=== PATIENT | female | born 1935 | race Hispanic/Latino ===

== ENCOUNTER 2017-11-23 10:51 | Emergency (ER) | payer MEDICARE, OTHER ==
[~2017-11-23] VITALS: Ht 157.5 cm; Wt 81.6 kg
[~2017-11-23 10:51] MED LIST: LEVAQUIN500 MG PO; ULTRAM 50MG50 MG PO
[2017-11-23] MEDS ORDERED: TETRACAINE HCL 0.5% OPTH SOLN 4 ML BTL OP ONE (11:45)
[2017-11-23 11:47] LABS: BASOPHILS # (AUTO) 0.1 (0.0-0.1); BASOPHILS % 0.6 % (0.0-1.0); EOSINOPHILS # (AUTO) 0.2 (0.0-0.4); EOSINOPHILS % 2.7 % (0.0-6.0); HEMATOCRIT 41.5 % (34.2-44.1); HEMOGLOBIN 13.7 g/dL (12.0-16.0); LYMPHOCYTES # (AUTO) 2.2 (1.0-3.2); LYMPHOCYTES % 27.2 % (18.0-39.1); MEAN CORPUSCULAR HEMOGLOBIN 27.6 pg (28-32); MEAN CORPUSCULAR VOLUME 83.5 fL (81-99); MONOCYTES # (AUTO) 0.4 (0.2-0.8); MONOCYTES % 4.9 % (4.4-11.3); NEUTROPHILS # (AUTO) 5.3 (2.1-6.9); NEUTROPHILS % 64.2 % (38.7-80.0); PLATELET COUNT 141 x10e3/uL (140-360); RED BLOOD COUNT 4.97 x10e6/uL (3.6-5.1); RED CELL DISTRIBUTION WIDTH 13.2 % (11.7-14.4)
--- NOTE | 2017-11-23 11:50 | Diagnostic Imaging Report ---
EXAMINATION: CHEST SINGLE (PORTABLE) INDICATION: \S\cough \[id number] \S\[id number] COMPARISON: None FINDINGS: AP view TUBES and LINES: None. LUNGS: Lungs are well inflated. Lungs are clear. There is no evidence of pneumonia or pulmonary edema. PLEURA: No pleural effusion or pneumothorax. HEART AND MEDIASTINUM: The cardiomediastinal silhouette is unremarkable. BONES AND SOFT TISSUES: No acute osseous or soft tissue findings. UPPER ABDOMEN: No free air under the diaphragm. IMPRESSION: No evidence of consolidative pneumonia. Signed by: DR. Morgan Esparza MD on 11/23/2017 11:46 AM
[2017-11-23 12:14] LABS: ALANINE AMINOTRANSFERASE 32 IU/L (0-55); ALBUMIN 3.8 g/dL (3.5-5.0); ALBUMIN/GLOBULIN RATIO 1.1 (0.8-2.0); ALKALINE PHOSPHATASE 86 IU/L (40-150); ANION GAP 15.6 mmol/L (8-16); BLOOD UREA NITROGEN 14 mg/dL (7-26); BUN/CREATININE RATIO 19 (6-25); CALCIUM 8.8 mg/dL (8.4-10.2); CARBON DIOXIDE 23 mmol/L (22-29); CHLORIDE 104 mmol/L (98-107); CREATININE, SERUM 0.73 mg/dL (0.57-1.11); EST GLOMERULAR FILTRATION RATE > 60 ML/MIN (60-); GLUCOSE 196 mg/dL (74-118); POTASSIUM 4.6 mmol/L (3.5-5.1); SODIUM 138 mmol/L (136-145)
--- NOTE | 2017-11-23 12:20 | Diagnostic Imaging Report ---
History:Headache, left eye pain Comparison studies:None Technique: Axial images were obtained from the skull base to the vertex. Coronal and sagittal images reconstructed from the axial data. Intravenous contrast: None Findings: Scalp/skull: No abnormalities. Extra-axial spaces: No masses. No fluid collections. Brain sulci: Mildly prominent. Ventricles: Mild compensatory dilatation. No hydrocephalus. Parenchyma: Scattered small hypodensities in the supratentorial white matter are small vessel ischemic changes. No masses, hemorrhage, acute or chronic cortical vascular insults. Sellar/suprasellar region: No abnormalities. Craniocervical junction: Patent foramen magnum. No Chiari one malformation. Incidental findings: Atherosclerotic calcifications in the carotid siphons . Impression: No acute abnormalities. Chronic findings: 1. Mild generalized volume loss. 2. Mild supratentorial white matter small vessel ischemic changes. Signed by: DR Efren Blanco M.D. on 11/23/2017 12:16 PM
[2017-11-23] MEDS ORDERED: KETOROLAC TROMETHAMINE 30 MG/ML VIAL IV STA (13:03)
[2017-11-23 14:13] VITALS: BP 173/84
== END 2017-11-23 14:25 | disposition home or self-care (01) ==
LOC: ER 10:51
DX: H10.232 Serous conjunctivitis, except viral, left eye (principal); J00 Acute nasopharyngitis [common cold]; E11.9 Type 2 diabetes mellitus without complications; I10 Essential (primary) hypertension; E78.5 Hyperlipidemia, unspecified
CPT/HCPCS: 36415; 70450; 71045; 80053; 85025; 87400; 99284; J1885

== ENCOUNTER 2019-04-07 13:43 | Emergency (ER) | payer MEDICARE, OTHER ==
[~2019-04-07] VITALS: Ht 157.5 cm; Wt 81.6 kg
--- OUTSIDE RECORDS SUMMARY | 2019-04-07 13:45 | XMS REPORT ---
[facility] Address Unknown Phone Unavailable Care Team Providers Care Trekking Guide Name Role Phone Rigo CASAS Unavailable Unavailable Problems This patient has no known problems. Allergies, Adverse Reactions, Alerts This patient has no known allergies or adverse reactions. Medications This patient has no known medications. Results Test Description Test Time Test Comments Text Results Atomic Results Result Comments CT BRAIN WO [place] [address] Patient Name: KHADAR BURDICK MR #: [id number] : 1935 Age/Sex: 82/F Req #: [id number] Adm Physician: Ordered by: BRIDGET CASAS MD Report #: [id number] Location: ER Room/Bed: Procedure: [id number] CT/CT BRAIN WO Exam Date: 11/23/17 Exam Time: 1219 REPORT STATUS: Signed History:Headache, left eye pain Comparison studies:None Technique: Axial images were obtained from the skull base to the vertex. Coronal and sagittal images reconstructed from the axial data. Intravenous contrast: None Findings: Scalp/skull: No abnormalities. Extra-axial spaces: No masses. No fluid collections. Brain sulci: Mildly prominent. Ventricles: Mild compensatory dilatation. No hydrocephalus. Parenchyma: Scattered small hypodensities in the supratentorial white matter are small vessel ischemic changes. No masses, hemorrhage, acute or chronic cortical vascular insults. Sellar/suprasellar region: No abnormalities. Craniocervical junction: Patent foramen magnum. No Chiari one malformation. Incidental findings: Atherosclerotic calcifications in the carotid siphons . Impression: No acute abnormalities. Chronic findings: 1. Mild generalized volume loss. 2. Mild supratentorial white matter small vessel ischemic changes. Signed by: DR Efren Blanco M.D. on 11/23/2017 12:16 PM Dictated By: EFREN DURAND MD [id number] Transcribed By: FLORENTINO on 11/23/17 1216 COPY TO: BRIDGET CASAS MD CHEST SINGLE (PORTABLE) [place] [address] Patient Name: KHADAR BURDICK MR #: [id number] : 1935 Age/Sex: 82/F Req #: [id number] Adm Physician: Ordered by: BRIDGET CASAS MD Report #: [id number] Location: ER Room/Bed: Procedure: [id number] DX/CHEST SINGLE (PORTABLE) Exam Date: 11/23/17 Exam Time: 1135 REPORT STATUS: Signed EXAMINATION: CHEST SINGLE (PORTABLE) INDICATION: COMPARISON: None FINDINGS: AP view TUBES and LINES: None. LUNGS: Lungs are well inflated. Lungs are clear. There is no evidence of pneumonia or pulmonary edema. PLEURA: No pleural effusion or pneumothorax. HEART AND MEDIASTINUM: The cardiomediastinal silhouette is unremarkable. BONES AND SOFT TISSUES: No acute osseous or soft tissue findings. UPPER ABDOMEN: No free air under the diaphragm. IMPRESSION: No evidence of consolidative pneumonia. Signed by: DR. Morgan Calloway MD on 11/23/2017 11:46 AM Dictated By: MORGAN CALLOWAY MD [id number] Transcribed By: FLORENTINO on 11/23/17 1146 COPY TO: BRIDGET CASAS MD
--- NOTE | 2019-04-07 16:22 | NUR ---
DR. MUSTAFA EVALUATING PATIENT IN TRIAGE PATIENT BP 238/99. PATIENT DID NOT TAKE HER BP MEDS BECAUSE SHE WAS COMING TO THE DOCTOR. EDUCATED HER TO ALWAYS TAKE HER SCHEDULED MEDS UNLESS THE DOCTOR SAYS OTHERWISE. PATIENT VERBALIZED UNDERSTANDING
[2019-04-07] MEDS: NIFEDIPINE 10 MG CAP PO NR (16:30)
[2019-04-07] MEDS ORDERED: LIDOCAINE HCL 1% 2 ML AMP ONE (16:32)
[2019-04-07] MEDS ORDERED: CEFTRIAXONE SOD 1 GM VIAL ONE (16:32)
[2019-04-07] MEDS: LIDOCAINE HCL 1% LOCAL INJ 20 ML VIAL INJ NR (16:39)
[2019-04-07] MEDS: CEFTRIAXONE SOD 1 GM VIAL IM NR (16:39)
[2019-04-07 16:56] LABS: BILIRUBIN,URINE NEGATIVE (NEGATIVE); CLARITY,URINE SL CLOUDY (CLEAR); COLOR,URINE YELLOW (YELLOW); KETONES,URINE NEGATIVE (NEGATIVE); LEUKOCYTE ESTERASE ,URINE SMALL (NEGATIVE); NITRITE,URINE POSITIVE (NEGATIVE); PROTEIN,URINE DIPSTICK NEGATIVE (NEGATIVE); URINE UROBILINOGEN 0.2 mg/dL (0.2 - 1)
[2019-04-07 17:09] LABS: BACTERIA,URINE MANY /HPF
--- NOTE | 2019-04-07 17:26 | NUR ---
PATIENT BROUGHT BACK TO TRIAGE TO EVALUATE BP AFTER GIVING PROCARDIA
--- NOTE | 2019-04-07 18:30 | NUR ---
PATIENT CALLED BACK TO TRIAGE FOR DISCHARGE. DR. MUSTAFA SPEAKING WITH PATIENT REGARDING FOLLOW UP CARE
== END 2019-04-07 18:40 | disposition home or self-care (01) ==
LOC: ER 13:43
DX: R10.30 Lower abdominal pain, unspecified (principal); R30.0 Dysuria; N30.91 Cystitis, unspecified with hematuria; E11.9 Type 2 diabetes mellitus without complications; E78.5 Hyperlipidemia, unspecified
CPT/HCPCS: 81001; 87086; 87186; 99283; J0696; J2001

== ENCOUNTER → 2022-06-14 | Day surgery (SDC) | payer OTHER ==
[2022-06-12 09:51] LABS: BASOPHILS % 0.4 % (0.0-1.0); EOSINOPHILS # (AUTO) 0.2 (0.0-0.4); EOSINOPHILS % 2.1 % (0.0-6.0); HEMOGLOBIN 12.9 g/dL (12.0-16.0); LYMPHOCYTES # (AUTO) 2.6 (1.0-3.2); LYMPHOCYTES % 28.6 % (18.0-39.1); MEAN CORPUSCULAR HEMOGLOBIN 28.8 pg (28-32); MEAN CORPUSCULAR HGB CONC 32.3 g/dL (31-35); MEAN CORPUSCULAR VOLUME 89.3 fL (81-99); MONOCYTES # (AUTO) 0.5 (0.2-0.8); MONOCYTES % 5.4 % (4.4-11.3); NEUTROPHILS # (AUTO) 5.7 (2.1-6.9); NEUTROPHILS % 63.2 % (38.7-80.0); PLATELET COUNT 146 x10e3/uL (140-360); RED BLOOD COUNT 4.48 x10e6/uL (3.6-5.1); RED CELL DISTRIBUTION WIDTH 13.2 % (11.7-14.4)
[~2022-06-14] MED LIST changes: +AREDS PO; +CRESTOR10 MG PO; +LIDOCAINE HCL 2% LOCAL INJ 5 ML SDV VIAL INJ ONE; +METFORMIN HCL500 MG PO; +PROPOFOL IV EMULSION 10 MG/ML 20 ML VIAL ONE; +SYSTANE 0.3-0.1 EACH OP; +TRAZODONE HCL50 MG PO; +ZESTRIL10 MG PO
[2022-06-14 10:30] VITALS: BP 159/82
== END | disposition home or self-care (01) ==
LOC: OR 06:57
PROVIDERS: ATTEND Internal Medicine Gastroenterology
DX: R19.5 Other fecal abnormalities (principal); D12.3 Benign neoplasm of transverse colon; K57.30 Diverticulosis of large intestine without perforation or abscess without bleeding; K64.8 Other hemorrhoids; Z71.3 Dietary counseling and surveillance; E11.9 Type 2 diabetes mellitus without complications; I10 Essential (primary) hypertension; E78.5 Hyperlipidemia, unspecified; E66.9 Obesity, unspecified; R53.1 Weakness; F32.A Depression, unspecified; Z88.0 Allergy status to penicillin; Z01.810 Encounter for preprocedural cardiovascular examination; Z01.812 Encounter for preprocedural laboratory examination; Z79.84 Long term (current) use of oral hypoglycemic drugs; Z79.899 Other long term (current) drug therapy; Z68.31 Body mass index [BMI] 31.0-31.9, adult
CPT/HCPCS: 36415; 45378; 82948; 85025; 88305; 93005; J2001

== ENCOUNTER 2024-10-10 17:26 | Emergency (ER) | payer MEDICARE, OTHER ==
[~2024-10-10] VITALS: Ht 157.5 cm; Wt 81.6 kg
[~2024-10-10 17:26] MED LIST changes: -LIDOCAINE HCL 2% LOCAL INJ 5 ML SDV VIAL INJ ONE; -PROPOFOL IV EMULSION 10 MG/ML 20 ML VIAL ONE
[2024-10-10 18:18] LABS: BASOPHILS % 0.5 % (0.0-1.0); EOSINOPHILS # (AUTO) 0.2 (0.0-0.4); EOSINOPHILS % 2.1 % (0.0-6.0); HEMATOCRIT 41.9 % (34.2-44.1); HEMOGLOBIN 12.9 g/dL (12.0-16.0); LYMPHOCYTES % 24.8 % (18.0-39.1); MEAN CORPUSCULAR HEMOGLOBIN 29.1 pg (28-32); MEAN CORPUSCULAR HGB CONC 30.8 g/dL (31-35); MEAN CORPUSCULAR VOLUME 94.4 fL (81-99); MONOCYTES # (AUTO) 0.6 (0.2-0.8); MONOCYTES % 6.9 % (4.4-11.3); NEUTROPHILS # (AUTO) 5.2 (2.1-6.9); NEUTROPHILS % 65.4 % (38.7-80.0); PLATELET COUNT 124 x10e3/uL (140-360); RED BLOOD COUNT 4.44 x10e6/uL (3.6-5.1); RED CELL DISTRIBUTION WIDTH 13.7 % (11.7-14.4)
[2024-10-10 18:26] LABS: CLARITY,URINE CLEAR (CLEAR); COLOR,URINE YELLOW (YELLOW); PH,URINE 7 (5 - 7)
[2024-10-10 18:27] LABS: BILIRUBIN,URINE NEGATIVE (NEGATIVE); GLUCOSE, URINE NEGATIVE (NEGATIVE); KETONES,URINE NEGATIVE (NEGATIVE); LEUKOCYTE ESTERASE ,URINE TRACE (NEGATIVE); NITRITE,URINE NEGATIVE (NEGATIVE); PROTEIN,URINE DIPSTICK NEGATIVE (NEGATIVE); URINE UROBILINOGEN 0.2 mg/dL (0.2 - 1)
[2024-10-10 18:35] LABS: BACTERIA,URINE FEW /HPF; EPITHELIAL CELLS,URINE FEW /LPF; RBC,URINE 0-5 /HPF (0-5); WBC,URINE (MAN) 0-5 /HPF (0-5)
[2024-10-10 18:44] LABS: ANION GAP 17.1 mmol/L (8-16); BILIRUBIN,TOTAL 0.8 mg/dL (0.2-1.2); CALCIUM 9.6 mg/dL (8.4-10.2); CREATININE, SERUM 1.03 mg/dL (0.57-1.11); POTASSIUM 4.1 mmol/L (3.5-5.1); TOTAL PROTEIN 7.9 g/dL (6.5-8.1)
[2024-10-10] MEDS ORDERED: ONDANSETRON ODT4 MG SL (21:11)
[2024-10-10] MEDS ORDERED: METRONIDAZOLE500 MG PO (21:11)
[2024-10-10] MEDS ORDERED: CIPRO500 MG PO (21:11)
[2024-10-10 21:29] VITALS: PULSE 67; RESP 18; TEMP 98.6; O2SAT 98
[2024-10-10] MEDS: HYDRALAZINE HCL 20 MG/ML VIAL IV STA (21:40)
[2024-10-10] MEDS ORDERED: IOPAMIDOL 370 MG/ML 100 ML INFUS..BTL INJ ONE (22:02)
[2024-10-10] MEDS ORDERED: HYDRALAZINE HCL 25 MG TAB ONE (22:08)
[2024-10-10] MEDS: HYDRALAZINE HCL 25 MG TAB PO ONE (22:50)
[2024-10-10] MEDS: BENAZEPRIL HCL 10 MG TAB PO ONE ×2 (23:40→23:41)
[2024-10-10] MEDS: HYDROXYZINE HCL 25 MG TAB PO ONE (23:42)
[2024-10-10] MEDS: HYDROCHLOROTHIAZIDE 25 MG TAB PO ONE (23:42)
[2024-10-10 23:45] VITALS: BP 195/84; PULSE 70; RESP 18; TEMP 98.7
== END 2024-10-10 23:50 | disposition home or self-care (01) ==
LOC: ER 17:34
DX: R10.12 Left upper quadrant pain (principal); K57.90 Diverticulosis of intestine, part unspecified, without perforation or abscess without bleeding; E11.65 Type 2 diabetes mellitus with hyperglycemia; E78.5 Hyperlipidemia, unspecified
CPT/HCPCS: 36415; 74177; 80053; 81001; 83690; 84484; 85025; 93005; 99284; J0360; J3410; Q9967